=== PATIENT | female | born 1955 | race Caucasian/White ===

== ENCOUNTER 2023-01-28 09:52 | Day surgery (SDC) | payer OTHER ==
[2023-01-27 13:27] LABS: Potassium 3.6 mEq/L (3.5-5.1)
--- NOTE | 2023-01-27 16:36 | EKG ---
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
[2023-01-28] MEDS ORDERED: CEFAZOLIN SODIUM 2 GM/VIAL ONE (10:21)
[2023-01-28] MEDS ORDERED: Ringers Lactate 1,000 ML IV ONE ×2 (10:21→14:39)
[2023-01-28] MEDS ORDERED: BUPIVACAINE 0.25% PF 10 ML VIAL ONE (11:54)
[2023-01-28] MEDS ORDERED: propofoL 200 MG/20 ML VIAL IV ONE (12:11)
[2023-01-28] MEDS ORDERED: FENTANYL CITR 100 MCG/2 ML ONE (12:12)
[2023-01-28] MEDS ORDERED: dexAMETHasone 10 MG/ML VIAL ONE ×2 (12:12→13:29)
[2023-01-28] MEDS ORDERED: ROCURONIUM 50 MG/5 ML VIAL IV ONE ×2 (12:12→13:41)
[2023-01-28] MEDS ORDERED: LIDOCAINE 2% MPF 5 ML VIAL ONE (12:12)
[2023-01-28] MEDS ORDERED: MIDAZOLAM HCL 2 MG/2 ML INJ ONE (12:13)
[2023-01-28] MEDS ORDERED: ONDANSETRON 4 MG/2 ML VIAL ONE (12:13)
[2023-01-28] MEDS ORDERED: KETOROLAC 30 MG/ML INJ ONE (12:13)
[2023-01-28] MEDS ORDERED: EPINEPHRINE/PF 1 MG/ML AMP ONE (13:29)
[2023-01-28] MEDS ORDERED: NS 0.9% VIAL 20 ML ONE (13:29)
[2023-01-28] MEDS ORDERED: BUPIVACAINE 0.25% PF 30 ML VIAL ONE (13:31)
--- NOTE | 2023-01-28 13:55 | P.OP ---
Preoperative diagnosis: Incisional Abdominal Hernia Postoperative diagnosis: Incisional Abdominal Hernia Primary procedure: Laparoscopic Ventral incisional hernia repair with mesh Anesthesia: GETA + Local Estimated blood loss: <2cc Specimen: None Findings: Ventral incision hernia in prior lorri RUQ cholecystectomy incision Complications: None Implants: Bard Ventralite ST 11.4cm Round, Sorbafix tacks x 60 Transferred to: Recovery Room Condition: Good
[2023-01-28] MEDS ORDERED: SUGAMMADEX SODIUM 200 MG/2 ML VIAL IV ONE (14:14)
[2023-01-28] MEDS: HYDROMORPHONE HCL 1 MG/ML INJ ONE ×2 (14:18→14:25)
[2023-01-28] MEDS ORDERED: HYDROMORPHONE HCL 1 MG/ML INJ ONE (14:50)
[2023-01-28 16:11] VITALS: BP 109/61; TEMP 97.2; O2SAT 99
--- NOTE | 2023-01-29 00:05 | OP ---
Date of Procedure: 01/28/2023 Surgeon: Rancho Hicks MD, Preoperative Diagnosis: Incisional ventral abdominal hernia. Postoperative Diagnosis: Incisional ventral abdominal hernia. Procedure Performed: Laparoscopic ventral incisional hernia repair with mesh. Anesthesia: General endotracheal plus local with 0.25% Marcaine. Estimated Blood Loss: Less than 10 cc. Specimen: None. Findings: Ventral incisional hernia through a previous right upper quadrant Anamika cholecystectomy incision. Complications: None. Implants: Bard Ventralight ST mesh with Echo Positioning System, 11.4 cm round mesh utilized and SorbaFix absorbable fixation tacks times 60. The patient was transferred to recovery room in good condition. Procedure In Detail: After informed consent was obtained, the patient was brought to the operating room, prepped and draped in the usual sterile fashion. After adequate anesthesia was achieved, the area of the left upper quadrant was anesthetized with 0.25% Marcaine and sharply incised. A 5 mm trocar was placed under direct visualization without evidence of complication. Insufflation was obtained to 15 mmHg at this time. There was no injury to vital structures upon entry into the abdomen. At this point, additional trocars were placed in the left lower quadrant. This was similarly anesthetized and sharply incised. A 12 mm trocar was placed under direct visualization without evidence of complication. I inspected the epigastric area and found that there was a hernia through the previous Anamika incision from the patient's open cholecystectomy from years past with omentum entrapped within. I used the LigaSure device to take down all preperitoneal fat and intraabdominal omental contents, and returned them to their normal anatomic positions. I then swept back all tissues and slightly swept back the falciform ligament using the LigaSure device with good hemostasis. No hemostat was required throughout the procedure. Once an appropriate landing zone was appreciated, I inspected the hernia sac and found it adequate for closure primarily. At this point, I used the Endo Stitch with 0 V-Loc suture and ran the hernia defect closed, imbricating the hernia sac at this point with good apposition of the tissues. Once the hernias were completely closed and the hernia sac was obliterated, I then deployed the Bard Ventralight ST mesh Echo Positioning System, 11.4 cm round mesh utilized and secured it to the anterior abdominal wall using a double crown SorbaFix absorbable fixation tacks with good apposition of the mesh to the abdominal wall. I removed the balloon deployment system, found it to be intact on the back table. I then replaced the remaining tacks to the anterior abdominal wall with good apposition of the mesh to the abdominal wall. No hemostat was required throughout the procedure. At this point, I closed the 12 mm trocar site using Meir-Tiffanie suture passer with 0 Vicryl in interrupted fashion with good approximation of tissue. The abdomen was completely desufflated under direct visualization without evidence of complication. All skin incisions were then copiously irrigated and closed with 4-0 Monocryl in running fashion. Dermabond was placed over top. The patient tolerated the procedure well without evidence of complication and transferred to PACU in good condition. All counts were correct at the end of the case. PAULINE/OLY Voice ID: [id number] Report ID: [id number]
== END 2023-01-28 16:05 | disposition home or self-care (01) ==
LOC: OR 09:52
PROVIDERS: ATTEND Surgery
PROC: 0WUF4JZ Supplement Abdominal Wall with Synthetic Substitute, Percutaneous Endoscopic Approach (ICD-10-PCS; principal; 2023-01-28 12:30)
DX: K43.2 Incisional hernia without obstruction or gangrene (principal); J44.9 Chronic obstructive pulmonary disease, unspecified; F17.210 Nicotine dependence, cigarettes, uncomplicated; I10 Essential (primary) hypertension; F32.A Depression, unspecified
CPT/HCPCS: 49591; 93005; 80048; 36415; A4216; J2704; J0171; J2001; J2250; J3010; J1100 ×2; J1170 ×2; J2405; J7120 ×2; C1781